=== PATIENT | male | born 1965 | race Caucasian/White ===

== ENCOUNTER 2021-04-20 06:15 | Observation (INO) | payer BC ==
[2021-04-20] MEDS ORDERED: SODIUM CHLORIDE 0.9% 500 ML 500 ML IV STA (06:35)
--- NOTE | 2021-04-20 06:38 | ED ---
General Adult HPI - General Stated complaint: Seizure Time Seen by Provider: 04/20/21 06:21 Source: patient, EMS, RN notes reviewed Mode of arrival: EMS Limitations: no limitations - History of Present Illness Initial comments: 55-year-old male presents emergency department via EMS for possible seizure. Patient's reportedly stated that he had some convulsions, shaking, was not responding. When EMS arrived patient was without was postictal, patient was confused, lethargic at the time as he presents emergency department she has no specific complaints she states is or remember any event he was sleeping. Patient has a headache dizziness blurred vision chest pain shortness of breath nausea vomiting is no history of seizures. Patient states takes amphetamine for ADHD, upper and off for his gout. Patient denies any new medications denies any history of seizures. Denies any recent illnesses. - Related Data Home Medications Medication Instructions Recorded Confirmed Allopurinol [Zyloprim] 300 mg PO DAILY 04/20/21 04/20/21 Cholecalciferol [Vitamin D3 (25 100 mcg PO DAILY 04/20/21 04/20/21 Mcg = 1000 Iu)] Dextroamphetamine/Amphetamine 30 mg PO BID 04/20/21 04/20/21 [Adderall] Glucosamine-Chondr 500-400Mg 2 tab PO DAILY 04/20/21 04/20/21 Testosterone [Androgel 1.62% Gel 1 applic TOPICAL DAILY 04/20/21 04/20/21 Pump] Allergies Allergy/AdvReac Type Severity Reaction Status Date / Time No Known Allergies Allergy Verified 04/20/21 07:52 Review of Systems ROS Statement: Those systems with pertinent positive or pertinent negative responses have been documented in the HPI. ROS Other: All systems not noted in ROS Statement are negative. General Exam General appearance: alert, in no apparent distress Head exam: Present: atraumatic, normocephalic, normal inspection Eye exam: Present: normal appearance, PERRL, EOMI. Absent: scleral icterus, conjunctival injection, periorbital swelling ENT exam: Present: normal exam, normal oropharynx, mucous membranes moist Neck exam: Present: normal inspection, full ROM. Absent: tenderness, meningismus, lymphadenopathy Respiratory exam: Present: normal lung sounds bilaterally. Absent: respiratory distress, wheezes, rales, rhonchi, stridor Cardiovascular Exam: Present: regular rate, normal rhythm, normal heart sounds. Absent: systolic murmur, diastolic murmur, rubs, gallop, clicks GI/Abdominal exam: Present: soft, normal bowel sounds. Absent: distended, tenderness, guarding, rebound, rigid Neurological exam: Present: alert, oriented X3, CN II-XII intact, reflexes normal. Absent: motor sensory deficit Skin exam: Present: warm, dry, intact, normal color. Absent: rash Course Vital Signs 04/20/21 06:40 Temperature 98 F Pulse Rate 100 Respiratory 19 Rate Blood Pressure 158/99 O2 Sat by Pulse 95 Oximetry Medical Decision Making - Medical Decision Making 55-year-old presented for new-onset seizure. Patient had a witnessed seizure at home. Patient was postictal. Workup is negative though concerning given patient's age 55 for new-onset seizure. Patient be admitted for neurology evaluation. - Lab Data Result diagrams: 04/20/21 07:04 04/20/21 07:04 Lab Results 04/20/21 04/20/21 Range/Units 07:04 07:04 WBC 11.8 H (3.8-10.6) k/uL RBC 4.79 (4.30-5.90) m/uL Hgb 14.0 (13.0-17.5) gm/dL Hct 43.6 (39.0-53.0) % MCV 90.9 (80.0-100.0) fL MCH 29.1 (25.0-35.0) pg MCHC 32.0 (31.0-37.0) g/dL RDW 14.8 (11.5-15.5) % Plt Count 370 (150-450) k/uL MPV 7.0 Neutrophils % 77 % Lymphocytes % 13 % Monocytes % 6 % Eosinophils % 2 % Basophils % 1 % Neutrophils # 9.1 H (1.3-7.7) k/uL Lymphocytes # 1.5 (1.0-4.8) k/uL Monocytes # 0.7 (0-1.0) k/uL Eosinophils # 0.2 (0-0.7) k/uL Basophils # 0.1 (0-0.2) k/uL Sodium 138 (137-145) mmol/L Potassium 4.3 (3.5-5.1) mmol/L Chloride 108 H (98-107) mmol/L Carbon Dioxide 25 (22-30) mmol/L Anion Gap 5 mmol/L BUN 16 (9-20) mg/dL Creatinine 0.89 (0.66-1.25) mg/dL Est GFR (CKD-EPI)AfAm >90 (>60 ml/min/1.73 sqM) Est GFR (CKD-EPI)NonAf >90 (>60 ml/min/1.73 sqM) Glucose 123 H (74-99) mg/dL Calcium 8.6 (8.4-10.2) mg/dL Magnesium 1.9 (1.6-2.3) mg/dL Total Bilirubin 0.5 (0.2-1.3) mg/dL AST 23 (17-59) U/L ALT 22 (4-49) U/L Alkaline Phosphatase 86 (38-126) U/L Total Protein 7.3 (6.3-8.2) g/dL Albumin 3.8 (3.5-5.0) g/dL Disposition Clinical Impression: New onset seizure Disposition: ADMITTED IP TO THIS [facility] Instructions (If sedation given, give patient instructions): Seizure/Epilepsy Discharge Instructions & Follow-Up Referrals: Pao Rogers MD [Primary Care Provider] - 1-2 days
[2021-04-20 07:23] LABS: Basophils # (A) 0.1 k/uL (0-0.2); Basophils % (A) 1 %; Eosinophils # (A) 0.2 k/uL (0-0.7); Eosinophils % (A) 2 %; HCT 43.6 % (39.0-53.0); Lymphocytes # (A) 1.5 k/uL (1.0-4.8); Lymphocytes % (A) 13 %; MCH 29.1 pg (25.0-35.0); MCV 90.9 fL (80.0-100.0); Monocytes # (A) 0.7 k/uL (0-1.0); Monocytes % (A) 6 %; Neutrophils # (A) 9.1 k/uL (1.3-7.7); Neutrophils % (A) 77 %; Platelet Count 370 k/uL (150-450); RBC 4.79 m/uL (4.30-5.90); RDW 14.8 % (11.5-15.5); WBC 11.8 k/uL (3.8-10.6)
[2021-04-20 07:26] LABS: ALT 22 U/L (4-49); AST 23 U/L (17-59); African American GFR (CKD) >90 (>60 ml/min/1.73 sqM); Albumin 3.8 g/dL (3.5-5.0); Alkaline Phosphatase 86 U/L (38-126); Anion Gap 5 mmol/L; Blood Urea Nitrogen 16 mg/dL (9-20); Calcium 8.6 mg/dL (8.4-10.2); Carbon Dioxide 25 mmol/L (22-30); Chloride 108 mmol/L (98-107); Glucose 123 mg/dL (74-99); Magnesium 1.9 mg/dL (1.6-2.3); Non-African American GFR(CKD) >90 (>60 ml/min/1.73 sqM); Potassium 4.3 mmol/L (3.5-5.1); Sodium 138 mmol/L (137-145); Total Bilirubin 0.5 mg/dL (0.2-1.3); Total Protein 7.3 g/dL (6.3-8.2)
--- NOTE | 2021-04-20 07:38 | CT ---
EXAMINATION TYPE: CT brain wo con DATE OF EXAM: 04/20/2021 COMPARISON: None HISTORY: 55-year-old male Seizures TECHNIQUE: Examination was done in axial plane without intravenous contrast. Coronal and sagittal r econstructions performed. CT DLP: 1126.5 mGycm Automated exposure control for dose reduction was used. FINDINGS: There is no evidence of acute intracranial hemorrhage, acute ischemic changes, mass, mass-effect, or extra-axial fluid collection. There is no effacement of cerebral sulci or basal subarachnoid cister ns. There is no hydrocephalus. There is no midline shift. De Leon-white matter distinction is preserv ed. Paranasal sinuses and mastoid air cells well pneumatized. Orbits and globes are intact. IMPRESSION: No acute intracranial abnormality seen. If symptoms persist, consider MRI.
[2021-04-20] MEDS ORDERED: ONDANSETRON 4 MG/2 ML VIAL IVP PRN (08:06)
[2021-04-20] MEDS ORDERED: NALOXONE 0.4 MG/ML 1 ML VIAL IV PRN ×2 (08:06→09:47)
[2021-04-20 08:23] VITALS: RESP 18
[2021-04-20] MEDS ORDERED: LORazepam 2 MG/ML INJ IV PRN (09:03)
--- NOTE | 2021-04-20 11:01 | P.CNNES ---
History of Present Illness Consult date: 04/20/21 Requesting physician: Kelby Rankin Reason for Consult: new onset seizure History of Present Illness: This is a 55-year-old gentleman with medical history of gout, ADHD, sleepe apnea on CPAP who presented emergency department on 04/20/2021 via EMS for seizure- like activity. Some of the history is obtained from the patient's was at bedside. The patient is accompanied with his as well as mother. According to the she stated that today around the 5 to 5:30 AM there are in bed and all of a sudden she heard a loud scream then the patient was shaking all extremities and fell out of bed and was having foaming around the mouth. The episode lasted 2 minutes. Patient the denied of any urinary or bowel i ncontinence or any tongue bite or soreness. During this episode his eyes were open and there are start staring ahead. Patient denies any history of seizures in the past. He denies of any alcohol use. Currently the patient feels he is back to baseline now. He denies of any current headache. Regarding the patient's history per the patient's mother she stated it was normal, he was at term normal vaginal delivery and no complication. Regarding family history of seizures the patient had the an uncle who had a brain mass in his 50s and as a result had one seizure. Otherwise no other [facility] members have history of seizures Patient is on Adderall 30 mg tablet twice a day, allopurinol, testosterone, Some other workup in the hospital consisted of: Initial vital signs is a blood pressure of 158/99, heart rate of 100, respiratory of 19, temperature of 98.0 Fahrenheit oral pulse ox of 95% room air. Initial white blood cells 11.8 thousand with the neutrophils is 9.1 otherwise rest of CBC with differential is unremarkable Chemistry panel is the glucose is 123 chloride is 108 otherwise rest of chemistry panel is unremarkable. CT of the head is reported as no acute intracranial abnormality seen. If symptoms persist consider MRI. I personally reviewed the CT of the head there is no acute subacute ischemia there is no interictal proximal hemorrhage. I don't see any definite of mass it's appreciable. Review of Systems Review of system: The 12 point system was reviewed and apparent positive and negative per HPI. Past Medical History Additional Past Medical History / Comment(s): gout, ADHD History of Any Multi-Drug Resistant Organisms: None Reported Past Surgical History: Appendectomy Past Psychological History: ADD/ADHD Smoking Status: Never smoker Past Alcohol Use History: None Reported Past Drug Use History: None Reported Medications and Allergies Home Medications Medication Instructions Recorded Confirmed Type Allopurinol [Zyloprim] 300 mg PO DAILY 04/20/21 04/20/21 History Cholecalciferol [Vitamin D3 (25 100 mcg PO DAILY 04/20/21 04/20/21 History Mcg = 1000 Iu)] Dextroamphetamine/Amphetamine 30 mg PO BID 04/20/21 04/20/21 History [Adderall] Glucosamine-Chondr 500-400Mg 2 tab PO DAILY 04/20/21 04/20/21 History Testosterone [Androgel 1.62% Gel 1 applic TOPICAL DAILY 04/20/21 04/20/21 History Pump] Allergies Allergy/AdvReac Type Severity Reaction Status Date / Time No Known Allergies Allergy Verified 04/20/21 07:52 Physical Examination - Vital Signs Vital Signs: Vital Signs Temp Pulse Resp BP Pulse Ox 04/20/21 08:21 93 18 141/83 95 04/20/21 06:40 98 F 100 19 158/99 95 Intake and Output 04/19/21 04/20/21 04/20/21 22:59 06:59 14:59 Other: Weight 172.365 kg GENERAL: The patient is la morbid obese, clifford in bed and is not in acute distress. CHEST: The heart rate is regular rate rhythm. No murmurs to auscultation. No carotid bruit bilaterally. LUNG: Clear to auscultation bilaterally no wheezing noted throughout. Not labored breathing. ABDOMEN/GI: Bowel sounds present in all 4 quadrants. No tenderness to palpation throughout. NEUROLOGICAL: Higher mental function: The patient is awake, alert, oriented to self, place and time. Patient is following commands. No aphasia and no neglect. Cranial nerves: The pupils are round, equal and reactive to light and accommodation. Visual ryan are full to confrontation throughout. Extraocular movement is intact no nystagmus is noted. Facial sensation is normal to touch throughout. The facial strength is normal throughout. Hearing is normal bilaterally to hand rub. Tongue is midline and moved [id number] without any difficulty. Has tongue bite over the right lateral side. No dysarthria is noted. Shoulder shrug is normal bilaterally. Motor: The strength is 5 over 5 throughout. Normal tone and bulk. Cerebellum: Normal finger to nose heel to alba bilaterally. Sensation: Sensation is normal to touch throughout. Reflexes (right/left): 1+ throughout. Plantars are downgoing bilaterally. Results - Laboratory Findings CBC and BMP: 04/20/21 07:04 04/20/21 07:04 Abnormal Lab Findings: Abnormal Labs 04/20/21 04/20/21 07:04 07:04 WBC 11.8 H Neutrophils # 9.1 H Chloride 108 H Glucose 123 H Assessment and Plan Assessment: New onset seizure (witnessed seizure-like activity lasting 2 minutes of jerking of all extremities, foaming around the mouth and has tongue bite). History of ADHD History of gout Sleep Apnea on CPAP Morbid obesity Plan: I spoke with the ED team and notified them to pursue with the routine EEG as well as MRI the brain per seizure protocol I'll not start the patient on antiepileptic drugs since patient had one seizure activity, unless there is a epileptic discharges or seizure on the EEG or any mass on the MRI or patient has any further seizures. Spoke with the patient regarding starting of antiepileptic and he agrees of not starting yet and wants all work-up done first. Every 4 hours neuro checks Placed on seizure pads and seizure precaution We'll defer the rest of the medical management to the primary team Per the [facility] because of the patient's seizures the patient cannot drive for 6 month until no further seizure episodes. He is to avoid heights, avoiding heavy machinery or swim unassisted and this was notified to patient. Upon discharge recommend the patient follow up with a neurologist as an outpatient within 1-2 weeks. The plan is discussed with patient, his and mother who are at bedside and ED team. Thank you for the consultation. Keven Rowland M.D. Neuro-hospitalist Time with Patient: Greater than 30
--- NOTE | 2021-04-20 14:06 | EEG ---
ELECTROENCEPHALOGRAM REPORT DATE OF SERVICE: 04/20/2021. CLINICAL HISTORY: This is a 55-year-old gentleman with witnessed seizure-like activity. The video EEG is obtained to evaluate for seizure epileptiform activity. Relevant medication: The patient is not on any antiepileptic drug. EEG TYPE: A routine 21-channel EEG is performed with video using the 10/20 electrode placement system. DESCRIPTION: Wakefulness and drowsiness are obtained. During awake state the posterior- dominant rhythm consists of low to moderate voltage of 10hertz activity. There is no physiological stage II sleep architecture seen. There is no focal slowing. Interictal and ictal is none. ACTIVATION PROCEDURE: Photic stimulation did not evoke a posterior driving response. There is no abnormality during the photic stimulation. Hyperventilation is not performed. CLINICAL INTERPRETATION: This is a normal routine EEG. There is no focal slowing, epileptiform discharges or seizure on the EEG. Clinical correlation is recommended. MARY ANN / TYRON: [id number] / MTDAngelina
--- NOTE | 2021-04-20 14:22 | MR ---
EXAMINATION TYPE: MR brain wo con DATE OF EXAM: 04/20/2021 COMPARISON: CT brain earlier today HISTORY: New onset seizure. TECHNIQUE: Multiplanar, multisequence imaging of the brain and brainstem is performed without IV cont rast. FINDINGS: Diffusion weighted images demonstrate no evidence of a recent infarct or other diffusion abnormality. There is no extraaxial fluid collection or significant white matter signal abnormality. The ventricu lar system and cisternal spaces are normal in size and appearance. The brain volume is age appropria te. Midline structures demonstrate empty sella morphology. The craniocervical junction appears within no rmal limits. Normal vascular flow voids are present. The visualized sinuses are clear and the globes are intact. IMPRESSION: No MRI evidence for a recent infarct. No obvious mass on noncontrast MRI.
[2021-04-20] MEDS ORDERED: IBUPROFEN 400 MG TAB PO PRN (19:48)
--- NOTE | 2021-04-20 20:41 | P.HPIM ---
History of Present Illness H&P Date: 04/20/21 Adrian Norman, he is a 55-year-old male who presented to [facility] emergency room after having seizure activity, patient states that he was not aware of what happened, he was asleep and he woke up in an ambulance [place], he states that per his he was sleeping when he fell out of bed and possibly hit his head and for the next 2 minutes he was having jerking movements, he was having some foam out of his mouth, and he bit his tongue. His called EMS and patient was brought into the hospital. He was evaluated in the emergency room vital examination on presentation revealed a white blood count of 98 pulse 100 respiration 19 blood pressure 158/99 pulse ox 95% on room air Laboratory data revealed a white blood count of 11.8 hemoglobin 14.0 platelet count 370 sodium 138 potassium 4.3 chloride 108 CO2 25 BUN 16 creatinine 0.89 Testing in the emergency room revealed computed tomography scan done in the emergency room without contrast revealed no acute intracranial abnormality Patient was admitted to medical floor for further evaluation and treatment, neurology consultation was requested Past medical history is significant for morbid obesity, obstructive sleep apnea maintained on CPAP, patient stated that he was wearing his CPAP when this happened, history of ADHD maintained on amphetamine salts twice daily, patient denies any previous history of seizures strokes or TIA he denies any history of any cancer. He denies any history of coronary artery disease congestive heart failure or cardiac arrhythmia. Past Medical History Additional Past Medical History / Comment(s): gout, ADHD History of Any Multi-Drug Resistant Organisms: None Reported Past Surgical History: Appendectomy Past Psychological History: ADD/ADHD Smoking Status: Never smoker Past Alcohol Use History: None Reported Past Drug Use History: None Reported Medications and Allergies Home Medications Medication Instructions Recorded Confirmed Type Allopurinol [Zyloprim] 300 mg PO DAILY 04/20/21 04/20/21 History Cholecalciferol [Vitamin D3 (25 100 mcg PO DAILY 04/20/21 04/20/21 History Mcg = 1000 Iu)] Dextroamphetamine/Amphetamine 30 mg PO BID 04/20/21 04/20/21 History [Adderall] Glucosamine-Chondr 500-400Mg 2 tab PO DAILY 04/20/21 04/20/21 History Testosterone [Androgel 1.62% Gel 1 applic TOPICAL DAILY 04/20/21 04/20/21 History Pump] Allergies Allergy/AdvReac Type Severity Reaction Status Date / Time No Known Allergies Allergy Verified 04/20/21 07:52 Physical Exam Vitals: Vital Signs Temp Pulse Resp BP Pulse Ox 04/20/21 08:21 93 18 141/83 95 04/20/21 06:40 98 F 100 19 158/99 95 Intake and Output 04/20/21 04/20/21 04/20/21 06:59 14:59 22:59 Other: Weight 172.365 kg In general patient is alert and oriented ?-3 in no distress HEENT head normocephalic and atraumatic Neck is supple no JVD no goiter no lymphadenopathy no carotid bruit Chest examination is clear to auscultation no crackles no wheezing Cardiac exam reveals regular heart sounds S1 and S2 no gallops no murmurs Abdomen is soft nontender no organomegaly with normal bowel sounds Extremity exam reveals no edema no cyanosis or clubbing Neurological examination reveals no gross focal deficits Results CBC & Chem 7: 04/20/21 07:04 04/20/21 07:04 Labs: Abnormal Lab Results - Last 24 Hours (Table) 04/20/21 04/20/21 Range/Units 07:04 07:04 WBC 11.8 H (3.8-10.6) k/uL Neutrophils # 9.1 H (1.3-7.7) k/uL Chloride 108 H (98-107) mmol/L Glucose 123 H (74-99) mg/dL Assessment and Plan Plan: Episode of loss of consciousness, with jerking movements most likely representing seizure activity Underlying history of morbid obesity Underlying history of ADHD Underlying history of obstructive sleep apnea maintained on CPAP At this time patient will be admitted to medical floor neurology consultation was requested Her neurology no need for starting medication for seizure with her first seizure activity, will monitor closely Testing including EEG and MRI ordered by neurology
[2021-04-21 09:41] VITALS: BP 130/79; PULSE 67; TEMP 97.6
[2021-04-21 11:10] LABS: Basophils # (A) 0.1 k/uL (0-0.2); Basophils % (A) 1 %; Eosinophils # (A) 0.3 k/uL (0-0.7); Eosinophils % (A) 3 %; HCT 43.2 % (39.0-53.0); Hypochromasia Slight; Lymphocytes # (A) 1.9 k/uL (1.0-4.8); Lymphocytes % (A) 19 %; MCH 30.1 pg (25.0-35.0); MCHC 32.4 g/dL (31.0-37.0); MCV 92.7 fL (80.0-100.0); Monocytes # (A) 0.4 k/uL (0-1.0); Monocytes % (A) 4 %; Neutrophils % (A) 72 %; Platelet Count 331 k/uL (150-450); RBC 4.66 m/uL (4.30-5.90); RDW 14.3 % (11.5-15.5); WBC 9.8 k/uL (3.8-10.6)
[2021-04-21 11:37] LABS: ALT 24 U/L (4-49); AST 33 U/L (17-59); African American GFR (CKD) >90 (>60 ml/min/1.73 sqM); Albumin 3.9 g/dL (3.5-5.0); Albumin/Globulin Ratio 1.2; Alkaline Phosphatase 73 U/L (38-126); Anion Gap 9 mmol/L; Blood Urea Nitrogen 15 mg/dL (9-20); Calcium 8.5 mg/dL (8.4-10.2); Carbon Dioxide 24 mmol/L (22-30); Chloride 104 mmol/L (98-107); Globulin 3.3 g/dL; Glucose 153 mg/dL (74-99); Non-African American GFR(CKD) >90 (>60 ml/min/1.73 sqM); Sodium 137 mmol/L (137-145); Total Bilirubin 0.7 mg/dL (0.2-1.3); Total Protein 7.2 g/dL (6.3-8.2)
--- NOTE | 2021-04-21 12:39 | P.DS ---
Providers Date of admission: 04/20/21 09:48 Expected date of discharge: 04/21/21 Attending physician: Nicolas Danielson Consults: 04/20/21 08:06 Consult Physician Urgent Consulting Provider: Keven Rowland Consult Reason/Comments: new onset seizure Do you want consulting provider notified?: Yes Primary care physician: Pao Rogers [facility] Course: Discharge diagnosis Episode of loss of consciousness, with jerking movements most likely representing seizure activity Underlying history of morbid obesity Underlying history of ADHD Underlying history of obstructive sleep apnea maintained on CPAP Hospital course Adrian Norman, he is a 55-year-old male who presented to [facility] emergency room after having seizure activity, patient states that he was not aware of what happened, he was asleep and he woke up in an ambulance [place] and [place], he states that per his he was sleeping when he fell out of bed and possibly hit his head and for the next 2 minutes he was having jerking movements, he was having some foam out of his mouth, and he bit his tongue. His called EMS and patient was brought into the hospital. He was evaluated in the emergency room vital examination on presentation revealed a white blood count of 98 pulse 100 respiration 19 blood pressure 158/99 pulse ox 95% on room air Laboratory data revealed a white blood count of 11.8 hemoglobin 14.0 platelet count 370 sodium 138 potassium 4.3 chloride 108 CO2 25 BUN 16 creatinine 0.89 Testing in the emergency room revealed computed tomography scan done in the emergency room without contrast revealed no acute intracranial abnormality Patient was admitted to medical floor for further evaluation and treatment, neurology consultation was requested Past medical history is significant for morbid obesity, obstructive sleep apnea maintained on CPAP, patient stated that he was wearing his CPAP when this happ ened, history of ADHD maintained on amphetamine salts twice daily, patient denies any previous history of seizures strokes or TIA he denies any history of any cancer. He denies any history of coronary artery disease congestive heart failure or cardiac arrhythmia. On 04/21/2021 patient is alert and oriented 3 no further episodes of seizure activity. MRI of the brain has been completed no MRI evidence for recent infarct no obvious mass on noncontrast MRI. EEG completed showing normal routine EEG no focal slowing or epileptiform discharge or seizure on the EEG. Per neurology services patient does not need to be started on antibiotic drugs since patient had one seizure activity patient will follow up with neurologist outpatient. At this time patient denies chest pain or shortness breath. Patient denies nausea vomiting or diarrhea. Patient denies any urinary burning or frequency Patient Condition at Discharge: Stable Plan - Discharge Summary Discharge Rx Participant: Yes New Discharge Prescriptions: Continue Testosterone [Androgel 1.62% Gel Pump] 1 applic TOPICAL DAILY Dextroamphetamine/Amphetamine [Adderall] 30 mg PO BID Cholecalciferol [Vitamin D3 (25 Mcg = 1000 Iu)] 100 mcg PO DAILY Glucosamine-Chondr 500-400Mg 2 tab PO DAILY Allopurinol [Zyloprim] 300 mg PO DAILY Discharge Medication List Allopurinol [Zyloprim] 300 mg PO DAILY 04/20/21 [History] Cholecalciferol [Vitamin D3 (25 Mcg = 1000 Iu)] 100 mcg PO DAILY 04/20/21 [History] Dextroamphetamine/Amphetamine [Adderall] 30 mg PO BID 04/20/21 [History] Glucosamine-Chondr 500-400Mg 2 tab PO DAILY 04/20/21 [History] Testosterone [Androgel 1.62% Gel Pump] 1 applic TOPICAL DAILY 04/20/21 [History] Follow up Appointment(s)/Referral(s): Pao Rogers MD [Primary Care Provider] - 1-2 days Mami Hernández MD [Medical Doctor] - 1 Week Patient Instructions/Handouts: Seizure/Epilepsy Discharge Instructions & Follow-Up Discharge Disposition: HOME SELF-CARE
--- NOTE | 2021-04-21 15:52 | P.PN ---
Subjective Progress Note Date: 04/21/21 The patient is seen at bedside and is feeling well. He is accompanied by his . No further seizure-like. Objective - Vital Signs Vital signs: Vital Signs Temp 97.6 F 04/21/21 07:00 Pulse 67 04/21/21 07:00 Resp 18 04/21/21 07:00 BP 130/79 04/21/21 07:00 Pulse Ox 95 04/21/21 07:00 Intake & Output 04/20/21 04/21/21 04/21/21 18:59 06:59 18:59 Weight 172.365 kg Other: # Voids 2 - Exam GENERAL: The patient is la morbid obese, clifford in bed and is not in acute distress. NEUROLOGICAL: Higher mental function: The patient is awake, alert, oriented to self, place and time. Patient is following commands. No aphasia and no neglect. Cranial nerves: The pupils are round, equal and reactive to light and accommodation. Visual ryan are full to confrontation throughout. Extraocular movement is intact no nystagmus is noted. Facial sensation is normal to touch throughout. The facial strength is normal throughout. Hearing is normal areli aterally to hand rub. Tongue is midline and moved [id number] without any difficulty. Has tongue bite over the right lateral side. No dysarthria is noted. Shoulder shrug is normal bilaterally. Motor: The strength is 5 over 5 throughout. Normal tone and bulk. Cerebellum: Normal finger to nose heel to alba bilaterally. Sensation: Sensation is normal to touch throughout. Reflexes (right/left): 1+ throughout. Plantars are downgoing bilaterally. WORK-UP: Routine EEG is normal. There is no focal slowing, epileptiform discharges or seizure on the EEG MRI the brain with and without is reported as no MRI evidence for recent infarct. No obvious mass on noncontrast. - Labs CBC & Chem 7: 04/21/21 10:40 04/21/21 10:40 Labs: Abnormal Lab Results - Last 24 Hours (Table) 04/21/21 Range/Units 10:40 Glucose 153 H (74-99) mg/dL Assessment and Plan Assessment: New onset seizure (witnessed seizure-like activity lasting 2 minutes of jerking of all extremities, foaming around the mouth and has tongue bite). History of ADHD History of gout Sleep Apnea on CPAP Morbid obesity Plan: I had discussion with patient regarding use of antiepileptic drug as prophylaxis since he had one seizure and to prevent further but he refuses. I will not start the patient on antiepileptic drug since he had one seizure episode and he will discuss this with a neurologist as outpatient. Every 4 hours neuro checks Placed on seizure pads and seizure precaution We'll defer the rest of the medical management to the primary team Per the [facility] because of the patient's seizures the patient cannot drive for 6 month until no further seizure episodes. He is to avoid heights, avoiding heavy machinery or swim unassisted and this was notified to patient. Upon discharge recommend the patient follow up with a neurologist as an outpatient within 1-2 weeks. The plan is discussed with patient, his . There is no further neurological work-up. He is clear from neurological perspective. Keven Rowland M.D. Neuro-hospitalist Time with Patient: Less than 30
[2021-04-22] MEDS ORDERED: allopurinoL 300 MG TAB PO SCH (09:00)
== END 2021-04-21 13:35 | disposition home or self-care (01) ==
LOC: EC 06:15 → 6NMEDSUR 09:48
PROVIDERS: ADMIT Internal Medicine; ATTEND Internal Medicine
DX: R56.9 Unspecified convulsions (principal); W06.XXXA Fall from bed, initial encounter; S01.552A Open bite of oral cavity, initial encounter; R51.9 Headache, unspecified; R06.02 Shortness of breath; R07.9 Chest pain, unspecified; R42 Dizziness and giddiness; F90.9 Attention-deficit hyperactivity disorder, unspecified type; G47.33 Obstructive sleep apnea (adult) (pediatric); E66.01 Morbid (severe) obesity due to excess calories; M10.9 Gout, unspecified; Z79.899 Other long term (current) drug therapy; Z82.0 Family history of epilepsy and other diseases of the nervous system; Z90.49 Acquired absence of other specified parts of digestive tract; R11.2 Nausea with vomiting, unspecified
CPT/HCPCS: 99285; 36415; 95816; 93005; 80053 ×2; 83735; 85025 ×2; 70450; 70551; G0378 ×2

== ENCOUNTER 2021-05-21 19:53 | Emergency (ER) | payer BC ==
--- NOTE | 2021-05-21 20:18 | ED ---
General Adult HPI - General Stated complaint: seizure Time Seen by Provider: 05/21/21 20:01 - History of Present Illness Initial comments: Dictation was produced using [employer] dictation software. please excuse any grammatical, word or spelling errors. Chief Complaint: 55-year-old male presents emergency department for seizure History of Present Illness: 55-year-old male he had a witnessed seizure while eating at a restaurant. Bystanders noted that the seizure lasted for approximately 5-10 minutes. Patient does not recall any of the events. He states he was eating dinner at a restaurant when all of a sudden he remembers next week and up in the back of an ambulance truck. Patient was admitted for seizure back in April of this year. He was not started on any antacid elliptic medications. Patient states he's supposed to have his initial outpatient neurology appointment on May 26. Patient states he feels at baseline cu rrently. Denies any numbness and paresthesias. Headache. The ROS documented in this emergency department record has been reviewed and confirmed by me. Those systems with pertinent positive or negative responses have been documented in the HPI. All other systems are other negative and/or noncontributory. PHYSICAL EXAM: General Impression: Alert and oriented x3, not in acute distress HEENT: Normocephalic atraumatic, extra-ocular movements intact, pupils equal and reactive to light bilaterally, mucous membranes moist, no lateral tongue avulsions Cardiovascular: Heart regular rate and rhythm Chest: Able to complete full sentences, no retractions, no tachypnea Abdomen: abdomen soft, non-tender, non-distended, no organomegaly Musculoskeletal: Pulses present and equal in all extremities, no peripheral edema Motor: no focal deficits noted Neurological: CN II-XII grossly intact, no focal motor or sensory deficits noted Skin: Intact with no visualized rashes Psych: Normal affect and mood ED course: 55-year-old well-appearing male presents to emergency department after having had a witnessed seizure at the restaurant. Vital signs upon arrival are within acceptable limits. Chart review was performed. It appeared that patient was admitted last month for new onset seizure. He was evaluated by neurology. An abnormal MRI and EEG at that time. Laboratory evaluation obtained showing no acute issues. His labs are unremarkable. Does have a mild stress leukocytosis. No lactic acidosis. Patient observed in emergency department for approximately 1 hour 15 minutes with no issues. Case was discussed with Dr. Rowland of neurology recommends that patient can safely be discharged with Keppra. Patient given 1 g of Keppra and started on 750 mg by mouth twice a day. Patient has an outpatient appointment with neurology on Monday. He is advised to keep that appointment. Return precautions discussed. Patient again told not to drive operate, heavy machinery, swim unattended or perform any other dangerous acts EKG interpretation: Ventricular rate 107, sinus tachycardia,. 181, QS 114, QTc 400. No WI prolongation, no QTC prolongation, no ST or T-wave changes noted. EKG compared to 04/20/2021 showing no changes. Overall, this EKG is unremarkable - Related Data Home Medications Medication Instructions Recorded Confirmed Allopurinol [Zyloprim] 300 mg PO DAILY 04/20/21 05/21/21 Cholecalciferol [Vitamin D3 (25 100 mcg PO DAILY 04/20/21 05/21/21 Mcg = 1000 Iu)] Dextroamphetamine/Amphetamine 30 mg PO BID 04/20/21 05/21/21 [Adderall] Glucosamine-Chondr 500-400Mg 2 tab PO DAILY 04/20/21 05/21/21 Testosterone [Androgel 1.62% Gel 1 applic TOPICAL DAILY 04/20/21 05/21/21 Pump] Ascorbic Acid [Vitamin C] 1,000 mg PO DAILY 05/21/21 05/21/21 Ibuprofen [Motrin Ib] 400 mg PO BID PRN 05/21/21 05/21/21 Loratadine [Claritin] 10 mg PO DAILY 05/21/21 05/21/21 Previous Rx's Medication Instructions Recorded levETIRAcetam [Keppra] 750 mg PO Q12HR 14 Days #28 tab 05/21/21 Allergies Allergy/AdvReac Type Severity Reaction Status Date / Time No Known Allergies Allergy Verified 05/21/21 21:00 Review of Systems ROS Statement: Those systems with pertinent positive or pertinent negative responses have been documented in the HPI. ROS Other: All systems not noted in ROS Statement are negative. Past Medical History Additional Past Medical History / Comment(s): gout, ADHD History of Any Multi-Drug Resistant Organisms: None Reported Past Surgical History: Appendectomy Past Psychological History: ADD/ADHD Smoking Status: Never smoker Past Alcohol Use History: None Reported Past Drug Use History: None Reported Course Vital Signs 05/21/21 20:08 Temperature 99.0 F Pulse Rate 106 H Respiratory 18 Rate Blood Pressure 154/87 O2 Sat by Pulse 97 Oximetry Medical Decision Making - Lab Data Result diagrams: 05/21/21 20:11 05/21/21 20:11 Lab Results 05/21/21 05/21/21 05/21/21 Range/Units 20:11 20:11 20:11 WBC 12.4 H (3.8-10.6) k/uL RBC 4.73 (4.30-5.90) m/uL Hgb 13.5 (13.0-17.5) gm/dL Hct 42.4 (39.0-53.0) % MCV 89.5 (80.0-100.0) fL MCH 28.5 (25.0-35.0) pg MCHC 31.8 (31.0-37.0) g/dL RDW 15.1 (11.5-15.5) % Plt Count 439 (150-450) k/uL MPV 6.7 Neutrophils % 72 % Lymphocytes % 18 % Monocytes % 5 % Eosinophils % 3 % Basophils % 1 % Neutrophils # 8.9 H (1.3-7.7) k/uL Lymphocytes # 2.3 (1.0-4.8) k/uL Monocytes # 0.6 (0-1.0) k/uL Eosinophils # 0.4 (0-0.7) k/uL Basophils # 0.1 (0-0.2) k/uL Sodium 136 L (137-145) mmol/L Potassium 4.4 (3.5-5.1) mmol/L Chloride 104 (98-107) mmol/L Carbon Dioxide 26 (22-30) mmol/L Anion Gap 6 mmol/L BUN 15 (9-20) mg/dL Creatinine 0.94 (0.66-1.25) mg/dL Est GFR (CKD-EPI)AfAm >90 (>60 ml/min/1.73 sqM) Est GFR (CKD-EPI)NonAf >90 (>60 ml/min/1.73 sqM) Glucose 109 H (74-99) mg/dL Plasma Lactic Acid Jack 1.4 (0.7-2.0) mmol/L Calcium 8.8 (8.4-10.2) mg/dL Magnesium 1.8 (1.6-2.3) mg/dL Disposition Clinical Impression: Generalized seizure Disposition: HOME SELF-CARE Condition: Fair Instructions (If sedation given, give patient instructions): Seizure/Epilepsy Discharge Instructions & Follow-Up, Recurrent Seizures in Adults (ED) Additional Instructions: no driving, swimming or operating heavy machinery Prescriptions: levETIRAcetam [Keppra] 750 mg PO Q12HR 14 Days #28 tab Is patient prescribed a controlled substance at d/c from ED?: No Referrals: Mami Hernández MD [Medical Doctor] - 05/26/21 Time of Disposition: 21:20
[2021-05-21 20:19] VITALS: RESP 18
[2021-05-21 20:19] LABS: Basophils # (A) 0.1 k/uL (0-0.2); Basophils % (A) 1 %; Eosinophils # (A) 0.4 k/uL (0-0.7); Eosinophils % (A) 3 %; HCT 42.4 % (39.0-53.0); HGB 13.5 gm/dL (13.0-17.5); Lymphocytes # (A) 2.3 k/uL (1.0-4.8); Lymphocytes % (A) 18 %; MCH 28.5 pg (25.0-35.0); MCHC 31.8 g/dL (31.0-37.0); MCV 89.5 fL (80.0-100.0); Mean Platelet Volume 6.7; Monocytes # (A) 0.6 k/uL (0-1.0); Monocytes % (A) 5 %; Neutrophils # (A) 8.9 k/uL (1.3-7.7); Neutrophils % (A) 72 %; Platelet Count 439 k/uL (150-450); RBC 4.73 m/uL (4.30-5.90); RDW 15.1 % (11.5-15.5); WBC 12.4 k/uL (3.8-10.6)
[2021-05-21 20:27] LABS: African American GFR (CKD) >90 (>60 ml/min/1.73 sqM); Anion Gap 6 mmol/L; Blood Urea Nitrogen 15 mg/dL (9-20); Calcium 8.8 mg/dL (8.4-10.2); Carbon Dioxide 26 mmol/L (22-30); Chloride 104 mmol/L (98-107); Glucose 109 mg/dL (74-99); Magnesium 1.8 mg/dL (1.6-2.3); Non-African American GFR(CKD) >90 (>60 ml/min/1.73 sqM); Potassium 4.4 mmol/L (3.5-5.1); Sodium 136 mmol/L (137-145)
[2021-05-21] MEDS ORDERED: levETIRAcetam IV 1,000 MG in SALINE 1 100ML.BAG IVPB ONE (21:03)
[2021-05-21] MEDS ORDERED: levETIRAcetam IV 1,500 MG in SALINE 1 100ML.BAG IVPB ONE (21:30)
[2021-05-21 21:52] VITALS: BP 143/82; PULSE 102; TEMP 99.1
== END 2021-05-21 22:03 | disposition home or self-care (01) ==
LOC: EC 19:53
DX: R56.9 Unspecified convulsions (principal)
CPT/HCPCS: 36415; 93005; 80048; 83605; 83735; 85025; 99285; 96374; J1953

== ENCOUNTER → 2021-07-15 | Outpatient (CLI) | payer BC ==
--- NOTE | 2021-07-15 13:58 | CONS ---
CONSULTATION DATE OF SERVICE: 07/15/2021 This 55-year-old gentleman was seen in our sleep center in 2010. At that time he had a sleep study which confirmed obstructive sleep apnea-hypopnea syndrome in moderate range. He was started on treatment with CPAP and he continued to use CPAP equipment until now. He received a new CPAP unit about 3 years ago. Currently his sleep schedule is from 10 p.m. until 6:30 a.m. on weekdays and from 11 p.m. until 9 a.m. on weekends. He does have problems with falling asleep sometimes, although no TV in bedroom. He sleeps on the side position. He wakes up from sleep up to 3 times. During the day, he has difficulties paying attention, falling asleep, has problems with concentration. [place] Sleepiness Scale is 5. I checked his CPAP unit. Pressure is 11 cm of water. Usage is 30/30 nights for more than 4 hours, average 9.2 hours per night. Leak is 8 L/minute. Apnea-hypopnea index is only 1.1. The patient's weight has significantly increased since his previous visit from 320 pounds up to 398 pounds today. PAST MEDICAL HISTORY: Positive for gout, allergies, ADHD and seizures, the last episode about 6 years ago. PAST SURGICAL HISTORY: Cholecystectomy. MEDICATIONS: Allopurinol 300 mg once a day. escitalopram 5 mg once a day, Levetiracetam 750 mg twice a day, clonidine 0.1 mg patch once a day, Claritin once a day. SOCIAL HISTORY: Negative for smoking or using alcohol. FAMILY HISTORY: Positive for heart problems, stroke, arthritis, diabetes, thyroid problems. REVIEW OF SYSTEMS: Awakenings from sleep even while using CPAP equipment. No fevers. No double vision. No recent chest pain. No shortness of breath. No abdominal pain. No bleeding episodes. No blood in the urine. No seizure episodes. PHYSICAL EXAMINATION: GENERAL: Pleasant gentleman without distress. VITAL SIGNS: BP 141/89, HR 80, RR 18, height 6 feet 0 inches, weight 398.0, body mass index 53.9, temperature 97.7, oxygen saturation at room air 97%. HEENT: PERRLA, EOMI, evaluation of oropharynx showed tongue protrudes midline. Extremely low position of soft palate. NECK: Supple, no JVD. Thyroid is not palpable. Neck is wide; 22-1/4 inches in circumference. LUNGS: Clear to percussion and to auscultation. Good air exchange. No wheezing or rhonchi. HEART: S1, S2 regular. No murmurs, gallops, or rubs. ABDOMEN: Obese. EXTREMITIES: No clubbing or cyanosis. MANAGER PROGRAM MANAGEMENT: Awake, alert, and oriented X3. Cranial nerves 2 to 7 intact. There is no fasciculation or atrophy. noted. No focal deficits observed. IMPRESSION: 1. Obstructive sleep apnea-hypopnea syndrome since about 2007. The patient continues to use his CPAP equipment every night for the whole night, benefitting from treatment. At present he has some awakenings from sleep while using his CPAP. 2. Obesity, in morbid range. Body mass index 53.9. The patient's weight increased by about 80 pounds since he previously was seen in Sleep Center. 3. Gout. 4. Allergies. 5. Attention deficit hyperactivity disorder. 6. Status post cholecystectomy. 7. History of seizures; last episode more than 5 years ago. PLAN: 1. I adjusted the pressure in his machine to automatic regimen with range of the pressure 8 to 15 cm of water. 2. The patient will continue to use CPAP equipment every night for the whole night. 3. Aggressive losing-weight program. 4. No driving if feeling any sleepiness. 5. A prescription was written for all necessary CPAP supplies. 6. Follow-up visit in 6 months or earlier if patient has any problems. Thank you very much for referring this patient for consultation. Sincerely, Mike Hernandez MD, PhD, FAASM Diplomat of [employer] Sleep Medicine Board of [employer] Maternity Floor Supervisor of [facility] [place] MMODL / CELYN: [id number] /
== END | disposition home or self-care (01) ==
LOC: SLEEP 11:18
PROVIDERS: ATTEND Internal Medicine
DX: G47.33 Obstructive sleep apnea (adult) (pediatric) (principal); E66.9 Obesity, unspecified; Z68.43 Body mass index [BMI] 50.0-59.9, adult; M10.9 Gout, unspecified; T78.40XA Allergy, unspecified, initial encounter; F90.9 Attention-deficit hyperactivity disorder, unspecified type; Z90.49 Acquired absence of other specified parts of digestive tract

== ENCOUNTER → 2022-10-05 | Outpatient (CLI) | payer BC ==
--- NOTE | 2022-10-05 18:04 | P.PN ---
Subjective DATE: 10/05/2022 FOLLOW UP VISIT. Patient with obstructive sleep apnea hypopnea syndrome return to sleep center for follow-up visit. Information from previous visit have been reviewed. Patient is using PAP equipment every night for the whole night, getting PAP supplies in time. The patient does not have significant problems with the mask, PAP unit and humidification. [place] sleepiness scale is 3. I checked information from PAP unit. PAP unit pressure 9-15, average 13 cm H2O. Usage is 100 % for more then 4 hours, average 9 hours per night. Leak is 26 l/m, which is in acceptable range. Apnea Hypopnea Index is 0.5, which is normal. MEDICATIONS:1. Allopurinol 300 mg once a day 2. Zyrtec 10 mg once a day 3. Lisinopril 20 mg once a day 4. Cyclobenzaprine 10 mg as needed 5. Escitalopram 5 mg once a day 6. Keppra 1500 mg twice a day During physical exam: GENERAL: A pleasant patient without any distress. VITAL SIGNS: BP 122/77, HR 95, RR 16 , weight 381.6, temperature 97.3, oxygen s aturation at room air 96 % . HEENT: PERRLA, EOMI.low position of soft palate, Mallapati 4 . NECK: Supple. No JVD. LUNGS: Clear to percussion and to auscultation. Good air exchange. No wheezing or rhonchi. HEART: S1, S2 regular. ABDOMEN: Soft and nontender. Obese EXTREMITIES: No clubbing or cyanosis. HAND TILE MAKER: Awake, alert, and oriented x3. No focal deficit. Impressions: 1. Obstructive sleep apnea-hypopnea syndrome. Patient demonstrated great compliance with treatment, benefiting from treatment. 2. Obesity, BMI 52.8, patient lost 26 pounds comparing with previous visit. 3. Gout. 4. History of ADHD. 5. ALLERGIES. 6. History of epilepsy, last episode more than 5 years ago. Plan: 1. Continue using PAP equipment every night for the whole night. 2. To change air filter at least 1-2 times per month. 3. PAP unit should stay lower then position of the head. 4. Advised patient to remove all remaining water from humidifier canister daily and make it dry after each usage. Refill canister with fresh distilled water before each usage. 5. Sleep hygiene with regular time in bed for at least 8 hours. 6. Precautions related to driving. No driving if feel any sleepiness. 7. I will maintain prescription for PAP supplies including mask, tube, filters. 8. Watching and continue losing weight. 9. Follow up visit in 6 months or earlier if patient has any problems. Thank you very much for allowing me to participate in the management of your patient. Mike Hernandez MD, PhD, FAASM. Diplomat of [employer] [employer], Sleep Medicine Board by [employer] [employer] Inventory Control Coordinator of [facility] [place]
== END ==
LOC: 3 N SLEEP 16:07
PROVIDERS: ATTEND Internal Medicine
DX: G47.33 Obstructive sleep apnea (adult) (pediatric) (principal); E66.9 Obesity, unspecified; M10.9 Gout, unspecified; F90.9 Attention-deficit hyperactivity disorder, unspecified type; Z68.43 Body mass index [BMI] 50.0-59.9, adult; Z86.69 Personal history of other diseases of the nervous system and sense organs; Z99.89 Dependence on other enabling machines and devices
CPT/HCPCS: 99212

== ENCOUNTER → 2023-08-16 | Outpatient (CLI) | payer OTHER ==
[2023-08-16 16:19] VITALS: BP 126/76; PULSE 73; RESP 16; TEMP 98.4
--- NOTE | 2023-08-16 16:47 | P.PROGSL ---
Subjective DATE: 08/16/2023 FOLLOW UP VISIT. Patient with obstructive sleep apnea hypopnea syndrome return to sleep center for follow-up visit. Information from previous visit have been reviewed. Patient is using PAP equipment every night for the whole night, getting PAP supplies in time. The patient does not have significant problems with the mask, PAP unit and humidification. [place] sleepiness scale is 4, which is normal. I checked information from PAP unit. PAP unit pressure 9-15 cm H2O. Usage is 100% for more then 4 hours, average 8.6 hours per night. Leak is 16 l/m, which is in acceptable range. Apnea Hypopnea Index is 0.5, which is normal. MEDICATIONS: Please see below During physical exam: GENERAL: A pleasant patient without any distress. VITAL SIGNS: Please see below, weight 407.4 pounds. HEENT: PERRLA, EOMI.low position of soft palate, Mallapati 4 . NECK: Supple. No JVD. LUNGS: Clear to percussion and to auscultation. Good air exchange. No wheezing or rhonchi. HEART: S1, S2 regular. ABDOMEN: Soft and nontender. Obese EXTREMITIES: No clubbing or cyanosis. RESERVATIONS AGENT: Awake, alert, and oriented x3. No focal deficit. Impressions: 1. Obstructive sleep apnea-hypopnea syndrome. Patient demonstrated great compliance with treatment, benefiting from treatment. 2. Obesity, BMI 55.9, patient increased weight on 26 pounds comparing with previous visit. 3. History of ADHD. 4. Gout. 5. Allergies. 6. History of epilepsy, no any recent episodes. Plan: 1. Continue using PAP equipment every night for the whole night. 2. To change air filter at least 1-2 times per month. 3. PAP unit should stay lower then position of the head. 4. Advised patient to remove all remaining water from humidifier canister daily and make it dry after each usage. Refill canister with fresh distilled water before each usage. 5. Sleep hygiene with regular time in bed for at least 8 hours. 6. Precautions related to driving. No driving if feel any sleepiness. 7. I will maintain prescription for PAP supplies including mask, tube, filters. 8. Follow up visit in 6 months or earlier if patient has any problems. 9. Watching and aggressive losing weight. Thank you very much for allowing me to participate in the management of your patient. Mike Hernandez MD, PhD, FAASM. Diplomat of [place], Sleep Medicine Board by [employer] Head Waiter/Waitress Banquet of [facility] [place] Objective - Vital Signs Vital Signs: Vital Signs Temp 98.4 F 08/16/23 16:18 Pulse 73 08/16/23 16:18 Resp 16 08/16/23 16:18 BP 126/76 08/16/23 16:18 Pulse Ox 94 L 08/16/23 16:18 FiO2 Intake & Output 08/15/23 08/16/23 08/16/23 18:59 06:59 18:59 Weight 184.612 kg Home Medications: Home Medications Medication Instructions Recorded Confirmed Type Cholecalciferol [Vitamin D3 (25 100 mcg PO DAILY 04/20/21 05/21/21 History Mcg = 1000 Iu)] Dextroamphetamine/Amphetamine 30 mg PO BID 04/20/21 05/21/21 History [Adderall] Glucosamine-Chondr 500-400Mg 2 tab PO DAILY 04/20/21 05/21/21 History Testosterone [Androgel 1.62% Gel 1 applic TOPICAL DAILY 04/20/21 05/21/21 History Pump] allopurinoL [Zyloprim] 300 mg PO DAILY 04/20/21 05/21/21 History Ascorbic Acid [Vitamin C] 1,000 mg PO DAILY 05/21/21 05/21/21 History Ibuprofen [Motrin Ib] 400 mg PO BID PRN 05/21/21 05/21/21 History Loratadine [Claritin] 10 mg PO DAILY 05/21/21 05/21/21 History levETIRAcetam [Keppra] 750 mg PO Q12HR 14 Days #28 tab 05/21/21 Rx Lacosamide [Vimpat] 200 mg PO BID 08/16/23 08/16/23 History Viloxazine HCl [Qelbree] 200 mg PO DAILY 08/16/23 08/16/23 History allopurinoL [Zyloprim] 300 mg PO DAILY 08/16/23 08/16/23 History tadalafiL [Cialis] 5 mg PO 08/16/23 History
== END ==
LOC: 3 N SLEEP 15:38
PROVIDERS: ATTEND Internal Medicine
DX: G47.33 Obstructive sleep apnea (adult) (pediatric) (principal); E66.9 Obesity, unspecified; M10.9 Gout, unspecified; F90.9 Attention-deficit hyperactivity disorder, unspecified type; T78.40XA Allergy, unspecified, initial encounter; G40.909 Epilepsy, unspecified, not intractable, without status epilepticus; Z99.89 Dependence on other enabling machines and devices; Z68.43 Body mass index [BMI] 50.0-59.9, adult
CPT/HCPCS: 99212

== ENCOUNTER → 2024-04-17 | Outpatient (CLI) | payer OTHER ==
--- NOTE | 2024-04-17 17:34 | P.PROGSL ---
Subjective DATE: 04/17/2024 FOLLOW UP VISIT. Patient with obstructive sleep apnea hypopnea syndrome return to sleep center for follow-up visit. Information from previous visit have been reviewed. Patient is using PAP equipment every night for the whole night, getting PAP supplies in time. The patient does not have significant problems with the mask, PAP unit and humidification. [place] sleepiness scale is 3, which is normal. I checked information from PAP unit. PAP unit pressure 9-15, average 14.6 cm H2O. Usage is 100% for more then 4 hours, average 8.9 hours per night. Leak is 4 l/m, which is in acceptable range. Apnea Hypopnea Index is 0.9, which is perfect. MEDICATIONS have been reviewed, please see below. During physical exam: GENERAL: A pleasant patient without any distress. VITAL SIGNS: Please see below, weight is 400 lbs. HEENT: PERRLA, EOMI.low position of soft palate, Mallapati 4 . NECK: Supple. No JVD. LUNGS: Clear to percussion and to auscultation. Good air exchange. No wheezing or rhonchi. HEART: S1, S2 regular. ABDOMEN: Soft and nontender. Obesity, BMI 55.0, patient lost 7 pounds comparing with previous visit EXTREMITIES: No clubbing or cyanosis. VP HR DIVERSITY: Awake, alert, and oriented x3. No focal deficit. Impressions: 1. Obstructive sleep apnea-hypopnea syndrome. Patient demonstrated great compliance with treatment, benefiting from treatment. 2. History of ADHD. 3. Gout. 4. Allergy. 5. History of epilepsy, no recent seizures episodes. Plan: 1. Continue using PAP equipment every night for the whole night. 2. Sleep hygiene with regular time in bed for at least 7.5-8 hours 3. PAP unit should stay lower then position of the head. 4. Advised patient to remove all remaining water from humidifier canister daily and make it dry after each usage. Refill canister with fresh distilled water before each usage. 5. Watching and losing weight. 6. Precautions related to driving. No driving if feel any sleepiness. 7. I will maintain prescription for PAP supplies including mask, tube, filters. 8. Follow up visit in 8 months or earlier if patient has any problems. Thank you very much for allowing me to participate in the management of your patient. Mike Hernandez MD, PhD, FAASM. Diplomat of [place], Sleep Medicine Board by [employer] Drain Tiler of [facility] [place] Objective - Vital Signs Vital Signs: Intake & Output 04/16/24 04/17/24 04/17/24 18:59 06:59 18:59 Weight 181.437 kg Home Medications: Home Medications Medication Instructions Recorded Confirmed Type Cholecalciferol [Vitamin D3 (25 100 mcg PO DAILY 04/20/21 04/17/24 History Mcg = 1000 Iu)] Dextroamphetamine/Amphetamine 30 mg PO BID 04/20/21 05/21/21 History [Adderall] Glucosamine-Chondr 500-400Mg 2 tab PO DAILY 04/20/21 05/21/21 History Testosterone [Androgel 1.62% Gel 1 applic TOPICAL DAILY 04/20/21 05/21/21 History Pump] allopurinoL [Zyloprim] 300 mg PO DAILY 04/20/21 04/17/24 History Ascorbic Acid [Vitamin C] 1,000 mg PO DAILY 05/21/21 05/21/21 History Ibuprofen [Motrin Ib] 400 mg PO BID PRN 05/21/21 05/21/21 History Loratadine [Claritin] 10 mg PO DAILY 05/21/21 05/21/21 History levETIRAcetam [Keppra] 750 mg PO Q12HR 14 Days #28 tab 05/21/21 04/17/24 Rx Lacosamide [Vimpat] 200 mg PO BID 08/16/23 04/17/24 History Viloxazine HCl [Qelbree] 200 mg PO DAILY 08/16/23 04/17/24 History allopurinoL [Zyloprim] 300 mg PO DAILY 08/16/23 04/17/24 History tadalafiL [Cialis] 5 mg PO DAILY 08/16/23 04/17/24 History Escitalopram [Lexapro] 5 mg PO DAILY 04/17/24 04/17/24 History Fluticasone Furoate [Arnuity 50 mcg PO DAILY 04/17/24 04/17/24 History Ellipta] lisinopriL [Zestril] 20 mg PO DAILY 04/17/24 04/17/24 History
== END ==
LOC: 3 N SLEEP 16:20
PROVIDERS: ATTEND Internal Medicine
DX: G47.33 Obstructive sleep apnea (adult) (pediatric) (principal); M10.9 Gout, unspecified; T78.40XA Allergy, unspecified, initial encounter; Z86.59 Personal history of other mental and behavioral disorders; Z86.69 Personal history of other diseases of the nervous system and sense organs
CPT/HCPCS: 99212